=== PATIENT | female | born 1995 ===

== ENCOUNTER 2019-03-05 17:28 | Emergency (ER) | payer BC, OTHER ==
[2019-03-05 17:50] VITALS: BP 123/66
--- NOTE | 2019-03-05 18:06 | UC ---
Respiratory Complaint HPI - HPI Summary HPI Summary: Mid chest "heaviness" since 0900 this morning. Previously had this pain intermittently x2 months. worse with deep inhalations. Denies any cough or congestion recently. No cardiac history. patient is on OBC and is not a smoker , EKG shows elevated HR at rest. patient is sitting clenching her chest states it feels painful to take deep breaths - History of Current Complaint Chief Complaint: UCChestPain Stated Complaint: CHEST PAIN Time Seen by Provider: 03/05/19 18:00 Hx Obtained From: Patient ?: No Onset/Duration: Sudden Onset, Lasting Hours Timing: Constant Severity Initially: Moderate Severity Currently: Severe Pain Intensity: 7 Aggravating Factors: Exertion, Deep Breaths Alleviating Factors: Nothing Associated Signs And Symptoms: Positive: Dyspnea - pressure and heaviness - Risk Factors Pulmonary Embolism Risk Factors: Oral Contraceptives - Allergies/Home Medications Allergies/Adverse Reactions: Allergies Allergy/AdvReac Type Severity Reaction Status Date / Time No Known Allergies Allergy Verified 03/05/19 17:50 Home Medications: Home Medications Control Pill 1 tab PO DAILY 03/05/19 [History Confirmed 03/05/19] PMH/Surg Hx/FS Hx/Imm Hx Previously Healthy: Yes - Surgical History Surgical History: None - Family History Known Family History: Positive: Hypertension - Social History Alcohol Use: None Substance Use Type: None Smoking Status (MU): Never Smoked Tobacco Review of Systems All Other Systems Reviewed And Are Negative: Yes Constitutional: Positive: Negative Skin: Positive: Negative Eyes: Positive: Negative ENT: Positive: Negative Respiratory: Positive: Shortness Of Breath, Other - chest heaviness Cardiovascular: Positive: Negative Gastrointestinal: Positive: Negative Genitourinary: Positive: Negative Motor: Positive: Negative Neurovascular: Positive: Negative Musculoskeletal: Positive: Negative Neurological: Positive: Negative Psychological: Positive: Negative Is Patient Immunocompromised?: No Physical Exam Triage Information Reviewed: Yes Appearance: Well-Appearing, Well-Nourished, Pain Distress Vital Signs: Initial Vital Signs Temp 99.2 F 03/05/19 17:40 Pulse 84 03/05/19 17:40 Resp 20 03/05/19 17:40 BP 123/66 03/05/19 17:40 Pulse Ox 100 03/05/19 17:40 Vital Signs Reviewed: Yes Eye Exam: Normal ENT Exam: Normal Dental Exam: Normal Neck exam: Normal Respiratory Exam: Normal Respiratory: Positive: Chest non-tender, Lungs clear, Normal breath sounds Cardiovascular Exam: Normal Cardiovascular: Positive: RRR, No Murmur, Pulses Normal Abdominal Exam: Normal Abdomen Description: Positive: Nontender, No Organomegaly, Soft Bowel Sounds: Positive: Present Musculoskeletal Exam: Normal Neurological Exam: Normal Psychological: Positive: Other: - slightly anxious Skin Exam: Normal Respiratory Course/Dx - Course Course Of Treatment: hx obtained, exam performed ,meds reviewed, ekg obtained and reviewed with Dr lopez, sent to [facility] to r/o PE - Differential Dx/Diagnosis Differential Diagnosis/HQI/PQRI: Bronchitis, Laryngitis, Lower Resp Infection, Pulmonary Embolism Provider Diagnosis: Chest heaviness, Uses oral contraceptives as primary control method Discharge - Sign-Out/Discharge Documenting (check all that apply): Patient Departure All imaging exams completed and their final reports reviewed: No Studies - Discharge Plan Condition: Stable Disposition: HOME-RECOMMEND TO ED Patient Education Materials: Shortness of Breath (ED) Referrals: JOHN Reynolds [Primary Care Provider] - Additional Instructions: 1. please follow up at ER for possible reasons for your shortness of breath. - Billing Disposition and Condition Condition: STABLE Disposition: Home-Recommend to ED - Attestation Statements Provider Attestation: I was available for consult. This patient was seen by the EILEEN. The patient was not presented to, seen by, or examined by me. -Tay
== END 2019-03-05 18:04 | disposition home health service (06) ==
LOC: UCCORT 17:28
DX: R07.89 Other chest pain (principal); R06.00 Dyspnea, unspecified; R00.0 Tachycardia, unspecified; Z79.3 Long term (current) use of hormonal contraceptives
CPT/HCPCS: 93005; 99212; G0463